=== PATIENT | female | born 1940 | race Caucasian/White ===

== ENCOUNTER 2023-03-02 16:45 | Inpatient (IN) | payer MEDICARE, BC, SELFPAY ==
[2023-03-02 16:56] VITALS: BP 125/81; PULSE 88; RESP 14; TEMP 36.9; O2SAT 94
--- NOTE | 2023-03-02 17:26 | CRLHL7_ITS ---
For Patients: As a result of the Century Cures Act, medical imaging exams and procedure reports are released immediately into your electronic medical record. You may view this report before your referring provider. If you have questions, please contact your health care provider. INDICATION: Left hip pain. TECHNIQUE: CT pelvis without contrast. COMPARISON: Nine. FINDINGS: Bones: Acute mildly displaced left subcapital femoral fracture with impaction. Joints: Unremarkable. Soft tissues: Colonic diverticulosis. Mild colonic stool burden. Otherwise, unremarkable. IMPRESSION: Acute mildly displaced left subcapital femoral fracture with impaction. Please note that all CT scans at this facility use dose modulation, iterative reconstruction, and/or weight-based dosing when appropriate to reduce radiation dose to as low as reasonably achievable. Dictated by Richie De Jesus MD @ 03/02/2023 6:32:48 PM (Electronically Signed)
--- NOTE | 2023-03-02 17:31 | ED_ITS ---
HPI - General Adult General Time Seen by Provider: 17:31 Date Seen: 03/02/23 Chief complaint: Fall/Minor Trauma Stated complaint: Fall at [facility], Trouble standing and walking Time Seen by Provider: 03/02/23 17:02 Source: family Mode of arrival: wheelchair History of Present Illness HPI narrative: Brenda is a 82-year-old female past medical history includes Alzheimer's presents emergency department via private car with family after a fall. Patient resides at [facility], she had a witnessed fall when she was ambulating, she hit her leg on a table and fell forward on her left side hitting her left knee and left hip, by the time staff got to her she was already standing up. No head injury or LOC. patient is not currently on blood thinners. When family was over she was sitting on the bed and leaning forward she complained of some left hip pain. When she ambulates she kind of limps on that left leg. Patient had been doing well prior to the fall. No other concerns at this time. Related Data Home Medications Medication Instructions Recorded Confirmed acetaminophen 500 mg capsule 500 mg PO BID 03/02/23 03/02/23 donepezil 5 mg tablet 5 mg PO DAILY 03/02/23 03/02/23 emollient (Vanicream topical) 1 applic topical DAILY 03/02/23 03/02/23 magic cup 1 cp PO BID 03/02/23 03/02/23 sertraline 50 mg tablet 50 mg PO DAILY 03/02/23 03/02/23 trazodone 50 mg tablet 25 mg PO BID PRN 03/02/23 03/02/23 Allergies Allergy/AdvReac Type Severity Reaction Status Date / Time No Known Drug Allergies Allergy Verified 03/02/23 17:07 Review of Systems Status of ROS: Reports: other (Unable to obtain due to dementia) PFSH PFSH Social History Smoking Status: Never smoker Do you use any of these nicotine containing products: None Second hand tobacco smoke exposure: No How often do you have a drink containing alcohol: never How often do you have six or more drinks on one occasion: Never AUDIT-C Alcohol total score: 0 Non-prescribed substance use: denies use service: No Exam Narrative: Exam Narrative: General: She has no obvious distress sitting comfortably, nontoxic in appearance, HEENT: Her head is atraumatic, pupils equal round reactive to light, extraocular muscles intact Neck: Nontender cervical spine Muscle skeletal: Back is atraumatic, nontender the thoracic to lumbar spine No pain with internal external rotation of the right hip, mild pain with internal external rotation of the left hip, no shortening, no external rotation, CMS intact Small abrasion to the left patella, normal range of motion left knee, nontender to palpation Neuro: Dementia, chronic, baseline per family Heart: Normal sinus rhythm Lungs: No increased work of breathing, CTA BL Const: Vital Signs, click to edit/add: Vital Signs - 24 hr 03/02/23 16:56 Temperature 98.4 F Pulse Rate [Pulse Oximeter] 88 Respiratory Rate 14 Blood Pressure [Ri ght Upper Arm] 125/81 Pulse Oximetry 94 Oxygen Delivery Me thod Room Air Course Course Hospital Course: Workup will include CT pelvis without IV contrast, no labs to be obtained at this time, patient's pain has been controlled, family was in agreement. Differential diagnosis include but not limited to fracture, sprain, contusion, dislocation, vascular damage nerve damage, ligament damage, tendon damage and other etiologies. Reevaluation(s) Reevaluation #1: CT pelvis without IV contrast: Showed a acute mildly displaced left subcapital femoral fracture with impaction. Will speak to Orthopedics on-call. Spoke with Nabil MCKEON from Orthopedics, recommended NPO after midnight and surgical intervention tomorrow at noon, this was discussed with family and there were in agreement. Spoke with Dr. Sanaz IVERSON, he accepts care of the patient to [facility]. Time: 18:50 Vital Signs Vital signs: Initial Vital Signs Temperature 98.4 F 03/02/23 16:56 Temperature Source Temporal Artery Scan 03/02/23 16:56 Pulse Rate 88 03/02/23 16:56 Respiratory Rate 14 03/02/23 16:56 Blood Pressure 125/81 03/02/23 16:56 Blood Pressure Mean 95 03/02/23 16:56 Blood Pressure Position Sitting 03/02/23 16:56 Pulse Oximetry 94 03/02/23 16:56 Oxygen Delivery Method Room Air 03/02/23 16:56 Vital Signs Temperature 98.4 F 03/02/23 16:56 Pulse Rate 88 03/02/23 16:56 Respiratory Rate 14 03/02/23 16:56 Blood Pressure 125/81 03/02/23 16:56 Pulse Oximetry 94 03/02/23 16:56 Oxygen Delivery Method Room Air 03/02/23 16:56 Temperature 98.4 F 03/02/23 16:56 Pulse Rate 88 03/02/23 16:56 Respiratory Rate 14 03/02/23 16:56 Blood Pressure 125/81 03/02/23 16:56 Pulse Oximetry 94 03/02/23 16:56 Oxygen Delivery Method Room Air 03/02/23 16:56 Discharge Plan Discharge Clinical Impression: Closed subcapital fracture of left femur Patient Disposition: Admitted As Inpatient
[2023-03-02 19:57] LABS: SARS Antigen* negative (Negative)
[2023-03-02] MEDS: TRAZODONE HCL 50 MG TABLET 25 MG PO (20:29)
[2023-03-02 21:09] LABS: Basophils Absolute Auto 0.03 K/uL (0.00-0.30); Basophils Percent Auto 0.3 % (0.0-3.0); Eosinophils Absolute Auto 0.04 K/uL (0.00-0.50); Eosinophils Percent Auto 0.4 % (0.0-7.0); Hematocrit 38.7 % (33.0-51.0); Hemoglobin* 12.3 gm/dL (12.0-16.0); Immature Granulocytes Abs Auto 0.01 K/uL (0.00-0.30); Immature Granulocytes Pct Auto 0.1 %; Lymphocytes Percent Auto 7.6 % (20-44); Mean Corpuscular HGB Conc 32 gm/dL (32-36); Mean Corpuscular Hemoglobin 28 pg (26-34); Mean Corpuscular Volume 88 fL (80-100); Monocytes Percent Auto 5.5 % (0.0-11.0); Neutrophils Percent Auto 86.1 % (42.0-72.0); Platelet Count* 192 K/uL (140-440); RDW Coefficient of Variation % 15.7 % (11.5-15.5); Red Blood Count 4.38 m/uL (4.00-5.20); White Blood Count* 9.35 K/uL (4.50-11.00)
[2023-03-02 21:23] LABS: Chloride* 103 mmol/L (96-114); Slide Review Reflex No; Sodium* 134 mmol/L (135-149)
[2023-03-02 21:24] LABS: Potassium* 4.1 mmol/L (3.6-5.1)
[2023-03-02 21:26] LABS: Creatinine* 0.5 mg/dL (0.5-1.5); Estimated Glomerular Filt Rate 95 ml/min
[2023-03-02 21:27] LABS: Blood Urea Nitrogen* 16 mg/dL (7-30); Calcium* 8.7 mg/dL (8.4-10.6); Carbon Dioxide* 23 mmol/L (20-32); Glucose* 151 mg/dL (60-115)
[2023-03-02 21:47] LABS: Troponin, Point-of-Care* 0.03 ng/ml (0.01-0.04)
[2023-03-02 21:59] VITALS: BP 130/89; PULSE 88; RESP 18; TEMP 36.4; O2SAT 97; BMI 17.8
[2023-03-02] MEDS: 5 % DEXTROSE IN LAC RINGER'S 1,000 ML 75 ML IV (22:39)
[2023-03-02 23:00] VITALS: BP 112/47; PULSE 88; PULSE 97; RESP 16; RESP 18; TEMP 36.4; O2SAT 95
--- NOTE | 2023-03-02 23:03 | PM.IMHP1 ---
Hospitalist- H&P: HPI History of Present Illness Time Seen by Provider: 20:30 Date Seen: 03/02/23 Chief complaint: Fall at [facility], Trouble standing and walking Narrative: Esteban Tesfaye is a 82 year old woman with advanced late onset Alzheimer's dementia, with severe and progressive cognitive impairment and physical debility. Longstanding history of multiple falls. Slow, evolving unintentional weight loss presumably due to inadequate oral intake. Lives at [address] [facility]. Patient had a witness fall today as she was ambulating. She struck her leg on a table, fell forward on her left side, hit her left knee in her left hip. By the time the staff reached her she was already standing up. Family was visiting her later in the day and notice the patient complaining of left hip pain. She is now ambulating with a limp on the left leg. Did not have a limp prior to her fall. Patient did not strike her head at all. Denies pain elsewhere. Upper extremities without discomfort. No loss of consciousness from this fall. Review of Systems Status of ROS: Reports: 10 or more systems reviewed and unremarkable except as noted in History and below Narrative: Denies chest heaviness, pressure, tightness, or pain. Denies cough, dyspnea at rest, paroxysmal nocturnal dyspnea, orthopnea. Denies syncope or near-syncope. Denies palpitations or chest fluttering. Denies dependent edema. No fever, rigors, or diaphoresis. Denies nausea vomiting. No constipation or diarrhea. No dysuria, urgency, frequency, hematuria. No focal motor neurologic deficits. According to her daughter Krys and her son Richard their mom's mood has been relatively well controlled on her current medication regimen. Their mother is agreeable most of the time, although other times she makes it known that she wants to try to continue to be as independent as possible with minimal support even when it might be dangerous for her to do something without support. No other recent falls. No other trauma or injury. No recent travel. No blood loss of any sort. Her daughter Krys and her son Richard speak on behalf of their mother. Thor cell phone is [phone]. Richard cell phone is [phone]. Patient has a DNR DNI resuscitation status. Her who has advanced dementia lives in the same [facility]. PFSH PFSH Medical History (Updated 03/02/23 @ 23:17 by Carlton Yo MD) Alzheimer's type dementia with late onset without behavioral disturbance ?G30.1 - Alzheimer's disease with late onset (ICD-10) ?F02.80 - Dementia in other diseases classified elsewhere, unspecified severity, without behavioral disturbance, psychotic disturbance, mood disturbance, and anxiety (ICD-10) Elevated BP without diagnosis of hypertension ?R03.0 - Elevated blood-pressure reading, without diagnosis of hypertension (ICD-10) Falls frequently ?R29.6 - Repeated falls (ICD-10) Physical debility ?R53.81 - Other malaise (ICD-10) Unstable gait ?R26.81 - Unsteadiness on feet (ICD-10) Weight loss, unintentional ?R63.4 - Abnormal weight loss (ICD-10) Social History Smoking Status: Never smoker Do you use any of these nicotine containing products: None Second hand tobacco smoke exposure: No How often do you have a drink containing alcohol: never How often do you have six or more drinks on one occasion: Never AUDIT-C Alcohol total score: 0 Non-prescribed substance use: denies use Caffeine: Yes (COFFEE) service: No Meds Home Medications and Allergies Home Medications Medication Instructions Recorded Confirmed Type acetaminophen 500 mg capsule 500 mg PO BID 03/02/23 03/02/23 History donepezil 5 mg tablet 5 mg PO DAILY 03/02/23 03/02/23 History emollient (Vanicream topical) 1 applic topical DAILY 03/02/23 03/02/23 History magic cup 1 cp PO BID 03/02/23 03/02/23 History sertraline 50 mg tablet 50 mg PO DAILY 03/02/23 03/02/23 History trazodone 50 mg tablet 25 mg PO BID PRN 03/02/23 03/02/23 History Allergies Allergy/AdvReac Type Severity Reaction Status Date / Time No Known Drug Allergies Allergy Verified 03/02/23 17:07 Exam Narrative: Exam Narrative: Patient appears to be in no acute distress. Appears comfortable. Alert and oriented to self only. Does not know the name of her own children although it seems like she recognizes them. Not oriented to place, time, or situation. I reminder at least 3 x 1 with her that she fractured her leg and she is going to be admitted to the hospital so we can try to help her with that. She acknowledges it for brief period of time and then ask the same question again. According to her daughter and son this type of behavior is not unusual at, it is very usual for her. Vision and hearing are preserved grossly. Tympanic membranes are normal. Midline nasal septum. Buccal mucosa is moist. Neck is supple. Midline trachea. No adenopathy. Cachectic features in neck chest and extremities, including atrophy of peripheral muscles. Lungs are clear to auscultation. Heart tones with regular rhythm. Abdomen is thin with active bowel sounds, soft, nontender. No shortening or rotation of left leg. Minimal discomfort with internal rotation of the left hip, none on the right hip. Const: Vital Signs, click to edit/add: Vital Signs - 24 hr 03/02/23 16:56 03/02/23 21:59 Temperature 98.4 F 97.5 F L Pulse Rate [Left P ulse Oximeter] 88 Pulse Rate [Pulse Oximeter] 88 Respiratory Rate 14 18 Blood Pressure [Le ft Arm] 130/89 Blood Pressure [Ri ght Upper Arm] 125/81 Pulse Oximetry 94 97 Oxygen Delivery Me thod Room Air Room Air Documenting provider has reviewed patient's vital signs: yes Hospitalist - H&P: Result Labs Labs: Short CBC 03/02/23 Range/Units 21:00 WBC 9.35 (4.50-11.00) K/uL Hgb 12.3 (12.0-16.0) gm/dL Hct 38.7 (33.0-51.0) % Plt Count 192 (140-440) K/uL BMP 03/02/23 21:00 Sodium 134 L Potassium 4.1 Chloride 103 Carbon Dioxide 23 BUN 16 Creatinine 0.5 Glucose 151 H Calcium 8.7 ECG Attestation: I personally reviewed and interpreted this ECG as follows: ECG interpretation date: 03/02/23 Prior ECG tracings: not available for review Interpretation: Normal sinus rhythm. Incomplete right bundle branch block. Nonspecific T-wave abnormalities. No obvious ischemia or infarct. Imaging CT scan - pelvis: Attestation: I have reviewed the pertinent imaging results. Radiologist's impression: Acute mildly displaced left subcapital femoral fracture with impaction. Assessment and Plan Assessment and plan (1) Closed subcapital fracture of left femur: Status: Acute (2) Fall: Status: Acute (3) Unstable gait: Status: Acute (4) Alzheimer's type dementia with late onset without behavioral disturbance: Status: Acute (5) Falls frequently: Status: Acute (6) Physical debility: Status: Acute Plan 1. Reviewed impression with Dr. Looney, physician in the emergency department. 2. Reviewed my impression with the patient, her daughter Krys, and her son Richrad. 3. Admit to the hospital. Pain control. Orthopedic surgery consultation. I am told that our emergency department physician has already spoken with the service of Dr. Thurman, who will be seeing the patient tomorrow morning and discussing the possibility bring the patient to OR for fracture repair. 4. NPO after midnight. IV fluids. Attempt Currie catheter placement, although I am concerned about her behaviors possibly not allowing us to utilize a Currie catheter. May need to place a Currie catheter in at time of surgery. 5. Continue the supportive medications. 6. Physical therapy, occupational therapy, social sciences lecturer consultation. 7. Patient family agreeable to above stated plans and recommendations.
[2023-03-03] VITALS (28 sets, daily range): BP systolic 95–128; BP diastolic 49–78; PULSE 59–98; RESP 12–20; TEMP 35.9–37.6; O2SAT 89–100; BMI 17.7
[2023-03-03 00:36] LABS: Appearance Urine Clear (Clear); Bilirubin Urine Negative (Negative); Blood Urine Negative (Negative); Color Urine Yellow (Yellow); Glucose Urine Negative (Negative); Ketones Urine 1+ (Negative); Leukocyte Esterase Urine Negative (Negative); Nitrite Urine Negative (Negative); Protein Urine Negative (Negative); Specific Gravity Urine 1.015 (1.000-1.030); Urobilinogen Urine 0.2 (0.2-1.0)
--- NOTE | 2023-03-03 04:51 | PC.NURSE ---
ADMISSION NOTE: Pt to room 245 at 2201 with left hip fx. Pt transferred from cart to bed with a 3 assist, tolerated well, pt did not appear in pain. Pt disoriented, unable to given name or , pt unaware of time, place or situation. Placed Currie cath, 550ml out upon insertion, urine sample sent to lab. Pt denies pain and looks comfortable at rest. Pt turning and repositioning self independently in bed, fall precautions in place. VSS on RA. Pt NPO at midnight for potential sx in AM.
[2023-03-03] MEDS: HYDROmorphone 0.5 mg/0.5 ml inj 0.2 MG IVP (05:47)
--- NOTE | 2023-03-03 06:46 | PC.NURSE ---
Pt alert and oriented to self. Afebrile. Pt denies pain, chest pain, SOB, and N/V. Pt shifts self?independently in bed.?Pt slept throughout most of night. VSS. Currie is patent and draining, pt is tolerating a NPO diet for surgery 03/03/23. ?
[2023-03-03 06:58] LABS: HCO3 VBG 26 mmol/L (21-28); Lactate* 1.6 mmol/L (0.5-1.9); PCO2 VBG 33 mmHG (40-50); PO2 VBG 67.4 mmHG (25-47); pH VBG 7.515 (7.32-7.43)
[2023-03-03 07:27] LABS: Chloride* 108 mmol/L (96-114); Potassium* 4.6 mmol/L (3.6-5.1); Sodium* 134 mmol/L (135-149)
[2023-03-03 07:29] LABS: Creatinine* 0.4 mg/dL (0.5-1.5); Est. Creatinine Clearance* 31.21; Estimated Glomerular Filt Rate 100 ml/min
[2023-03-03 07:30] LABS: Blood Urea Nitrogen* 14 mg/dL (7-30); Carbon Dioxide* 23 mmol/L (20-32)
[2023-03-03 07:31] LABS: Calcium* 8.2 mg/dL (8.4-10.6); Glucose* 132 mg/dL (60-115); Magnesium* 2.2 mg/dL (1.5-2.6); Phosphorus* 2.7 mg/dL (2.5-4.5)
[2023-03-03 07:33] LABS: C Reactive Protein* 3.3 mg/dL (0.5-1.0)
[2023-03-03 07:57] LABS: Hematocrit 33.4 % (33.0-51.0); Hemoglobin* 10.9 gm/dL (12.0-16.0); Mean Corpuscular HGB Conc 33 gm/dL (32-36); Mean Corpuscular Hemoglobin 29 pg (26-34); Mean Corpuscular Volume 87 fL (80-100); Platelet Count* 180 K/uL (140-440); Red Blood Count 3.83 m/uL (4.00-5.20); White Blood Count* 7.04 K/uL (4.50-11.00)
[2023-03-03 08:01] LABS: Slide Review Reflex No
[2023-03-03] MEDS: DONEPEZIL 5 MG TABLET PO (08:43)
[2023-03-03] MEDS: SERTRALINE 50 MG TABLET PO (08:43)
--- NOTE | 2023-03-03 10:06 | W.ANESCHARGE ---
Anesthesia Charges Start Date/Time Anesthesia Start Date: 03/03/23 Anesthesia Start Time: 12:03 Stop Date/Time Anesthesia Stop Date: 03/03/23 Anesthesia Stop Time: 13:42 Summary Emergency: MDA Extremes of Age - Over 70 or under 1: MDA
--- NOTE | 2023-03-03 10:12 | P.IMPN_ITS ---
Progress Note: A&P Assessment and plan (1) Closed subcapital fracture of left femur: Problem details: - surgery 03/[address] Thurman Status: Acute (2) Fall: Problem details: - therapies will follow-up postoperatively Status: Acute (3) Unstable gait: Status: Acute (4) Alzheimer's type dementia with late onset without behavioral disturbance: Problem details: - stable at this time, no agitation Status: Acute Plan - surgery today, therapies postoperatively to help assist with disposition planning Subjective Date Seen: 03/03/23 Interval history: No acute events overnight. Patient is having surgery today with Dr. Thurman. She has no concerns for the hospitalist team this morning. Exam Narrative: Exam Narrative: GEN: Esteban is laying comfortably in bed, nontoxic in appearance, cognitive impairment evident but she is answering questions appropriately HEENT: EOMIs bilaterally, no scleral icterus CV: RRR, No concerning murmurs R: LCTA bilaterally without concerning wheezing Skin: No concerning skin lesions or rashes on exposed skin Neuro: No focal deficits on limited neurologic exam Const: Vital Signs, click to edit/add: Vital Signs - 24 hr 03/02/23 16:56 03/02/23 21:59 03/02/23 23:00 Temperature 98.4 F 97.5 F L Pulse Rate [Left A pical] Pulse Rate [Left P ulse Oximeter] 88 88 Pulse Rate [Pulse Oximeter] 88 Respiratory Rate 14 18 18 Blood Pressure [Le ft Arm] 130/89 Blood Pressure [Ri ght Upper Arm] 125/81 Pulse Oximetry 94 97 Oxygen Delivery Me thod Room Air Room Air 03/02/23 23:00 03/02/23 23:00 03/03/23 02:30 Temperature 97.6 F 97.8 F Pulse Rate [Left A pical] Pulse Rate [Left P ulse Oximeter] 97 91 Pulse Rate [Pulse Oximeter] Respiratory Rate 16 16 18 Blood Pressure [Le ft Arm] 112/47 L 101/52 L Blood Pressure [Ri ght Upper Arm] Pulse Oximetry 95 95 96 Oxygen Delivery Me thod Room Air Room Air Room Air 03/03/23 07:35 03/03/23 07:35 Temperature 97.5 F L Pulse Rate [Left A pical] 76 Pulse Rate [Left P ulse Oximeter] 76 Pulse Rate [Pulse Oximeter] Respiratory Rate 18 18 Blood Pressure [Le ft Arm] 119/56 L Blood Pressure [Ri ght Upper Arm] Pulse Oximetry 95 95 Oxygen Delivery Me thod Room Air Room Air Labs Labs: Laboratory Results - last 24 hr 03/02/23 03/02/23 03/02/23 19:34 21:00 23:05 WBC 9.35 RBC 4.38 Hgb 12.3 Hct 38.7 MCV 88 MCH 28 MCHC 32 RDW Coeff of [place] 15.7 H Plt Count 192 Neut % (Auto) 86.1 H Lymph % (Auto) 7.6 L [place] % (Auto) 5.5 Eos % (Auto) 0.4 Baso % (Auto) 0.3 Neut # (Auto) 8.10 H Lymph # (Auto) 0.70 L [place] # (Auto) 0.50 Eos # (Auto) 0.04 Baso # (Auto) 0.03 VBG pH VBG pCO2 VBG pO2 VBG HCO3 Sodium 134 L Potassium 4.1 Chloride 103 Carbon Dioxide 23 BUN 16 Creatinine 0.5 Estimated Creat Clear Estimated GFR 95 Glucose 151 H Lactate Calcium 8.7 Phosphorus Magnesium C-Reactive Protein TSH Urine Color Yellow Urine Appearance Clear Urine pH 7.0 Ur Specific [place] 1.015 Urine Protein Negative Urine Glucose (UA) Negative Urine Ketones 1+ A Urine Blood Negative Urine Nitrite Negative Urine Bilirubin Negative Urine Urobilinogen 0.2 Ur Leukocyte Esterase Negative SARS-CoV-2 Ag (Rapid) negative POC Troponin I 0.03 03/03/23 05:47 WBC 7.04 RBC 3.83 L Hgb 10.9 L Hct 33.4 MCV 87 MCH 29 MCHC 33 RDW Coeff of [place] Plt Count 180 Neut % (Auto) Lymph % (Auto) [place] % (Auto) Eos % (Auto) Baso % (Auto) Neut # (Auto) Lymph # (Auto) [place] # (Auto) Eos # (Auto) Baso # (Auto) VBG pH 7.515 H VBG pCO2 33 L VBG pO2 67.4 H VBG HCO3 26 Sodium 134 L Potassium 4.6 Chloride 108 Carbon Dioxide 23 BUN 14 Creatinine 0.4 L Estimated Creat Clear 31.21 Estimated GFR 100 Glucose 132 H Lactate 1.6 Calcium 8.2 L Phosphorus 2.7 Magnesium 2.2 C-Reactive Protein 3.3 H TSH 1.670 Urine Color Urine Appearance Urine pH Ur Specific [place] Urine Protein Urine Glucose (UA) Urine Ketones Urine Blood Urine Nitrite Urine Bilirubin Urine Urobilinogen Ur Leukocyte Esterase SARS-CoV-2 Ag (Rapid) POC Troponin I
--- NOTE | 2023-03-03 11:11 | SUR.PREOP ---
TIME?OUT:?1111 PT/RN/MDA?VERIFICATION?OF?SURGICAL?SITE,?PROCEDURE,?AND?CONSENT OBTAINED?PRIOR?TO?INVASIVE?PROCEDURE.
[2023-03-03] MEDS: LACTATED RINGERS 1000 ML 1,000 ML 125 ML IV (12:03)
[2023-03-03] MEDS: CEFAZOLIN 1 GM in 0.9 % SODIUM CHLORIDE Mini-bag 100 ML IVPB ×2 (12:31→20:52)
--- NOTE | 2023-03-03 12:48 | PC.NURSE ---
Pt eval by Dr. Manuel Thurman this am, left hip marked by surgeon for procedure later today. Pt's dtr Krys who is POA provided verbal consent via telephone witnessed by surgeon and primary RN. Pt received po meds with sip of water. Preop check list and SBAR completed per protocol. Son Richard and Shaniqua present at bedside when pt taken to OR in her hospital bed at 1049am.
--- NOTE | 2023-03-03 13:32 | PC.SOCIAL ---
Discharge planning- Phone call to pt's son, Richard Farfan (primary contact), to discuss discharge plans. The family would like pt to go to [facility] for short-term rehab, since pt currently lives on [facility]. This worker informs that social work will follow up with family next Monday to discuss plans further. Phone call to Tresa Guerrier in admissions at [facility] at [phone]. Verified that pt currently lives in the [facility]. Provided information that pt is having surgery today and will need short-term rehab for recovery. Tresa requests that the cover sheet, H&P, Progress notes, and med list be faxed to her for review. Tresa informs that [facility] can accept pt for admission when pt is medically ready for discharge. Tresa requests that therapy notes be sent next Monday and an update. Faxed referral to [facility] at [phone]. Social work will follow up as necessary.
--- NOTE | 2023-03-03 13:47 | P.ORPRC_ITS ---
Procedure Note Date of procedure: 03/03/23 Procedure: PREOPERATIVE DIAGNOSIS: 1. Left femoral neck fracture, displaced, acute, closed POSTOPERATIVE DIAGNOSIS: 1. Left femoral neck fracture, displaced, acute, closed PROCEDURE: 1. Left hip bipolar hemiarthroplasty for femoral neck fracture SURGEON: Manuel Thurman MD. FAMILY MEDICINE PHYSICIAN ASSISTANT: Cresencio SON - Of note, an assistant curator was critical for this case to aid in patient positioning, tissue retraction, limb manipulation/positioning, hip reduction and dislocation, clearing of cement, and closure. ANESTHESIA: Spinal anesthetic EBL: 50 mL. IMPLANTS: DePuy cemented [place] stem (size 4 with 127 degree neck); (+1.5) 28mm inner head diameter and 46 mm outer head diameter; 9.5 centralizer] COMPLICATIONS: None evident INDICATIONS: The patient is a pleasant 82-year-old female who has experienced severe left hip pain after a fall on 03/02/2023. She sustained a fall from a standing height. She resides at [facility]. She has a history of dementia. After the fall, she was unable to bear weight. Presented to [facility]. X-rays revealed a left femoral neck fracture that was displaced. After medical evaluation found the patient to be in optimal condition, surgery was recommended for stabilization of the hip. DESCRIPTION OF PROCEDURE: Following a thorough discussion of risks, benefits, and alternatives consent was obtained and the left hip was marked. The patient was brought to the operating room and placed supine on the operating table. Induction of anesthesia was undertaken. They were then positioned lateral decubitus with the operative side up. 1 g IV Ancef and 1 g tranexamic acid was administered within 1 hr of incision preoperatively. Proper time-out was performed identifying proper patient, site, and procedure. The operative extremity was prepped and draped in the appropriate sterile fashion using ChloraPrep with head in neutral alignment in all bony prominences well padded and an axillary roll placed. A curvilinear longitudinal incision was made in line with the posterior 1/3rd of the greater trochanter, fairly equally divided proximal and distal to the greater trochanter tip. Sharp incision through skin and Bovie cautery through subcutaneous tissue allowed hemostasis to be achieved. The ITB band was identified, divided in line with its fibers as was the gluteal fascia. The deeper muscle fibers were bluntly divided. The greater trochanteric bursa was excised, and the short external rotators were then released from their insertion including the piriformis. These were tagged for later repair. Additionally the capsule was released in an inverted T-fashion. The fracture hematoma was immediately encountered and evacuated. Capsule was released down to the lesser trochanter. The femoral head was removed, and sized out to be approximately a 46 mm outer head. At this stage, the femoral neck was freshened with a sagittal saw with caution taken to avoid injury to the greater trochanter. The femur was prepared initially with a box osteotome and hand reamers followed by surgical broaches up to the size noted above. Various head sizes were then trialed and found to have an excellent fit/stability with the implants noted above. At this stage, thorough irrigation normal saline was performed, and cement was mixed on back table. The cement restrictor was placed deep after thorough irrigation and preparation of the femoral canal, followed by cementing, pr essurizing, and stem insertion while holding it in valgus to avoid a varus position. Trial heads were again inserted and found to have excellent stability and length when compared to the contralateral lower extremities. Thus, the real heads were open, and inserted. Thorough irrigation with normal saline was then performed followed by closure of the capsule followed by the short external rotators through drill holes in the greater trochanter with #1 PDS. Thorough irrigation was again performed, and closure of the ITB band was completed with #1 Stratafix. Subcutaneous and subcuticular closure was closed with 2-O Vicryl and 4 -0 Monocryl, respectively. Dressings were applied, and the patient was awoken from anesthesia and transferred the PACU in stable condition. PLAN: 1. Weight bear as tolerated on the operative extremity - posterior hip precautions. 2. 23 hr perioperative antibiotics. 3. Ice. 4. PT/OT consults for ambulation assistance/mobility education - posterior hip precautions. 5. Social work consult for discharge planning. 6. Analgesics PRN 7. DVT prophylaxis with at [facility], Leonel Cornejo, and Axelrelnyla.
--- NOTE | 2023-03-03 13:53 | P.ORCN_ITS ---
History of Present Illness HPI Date Seen: 03/03/23 Chief complaint: Fall at [facility], Trouble standing and walking Narrative: Esteban is an 82 year old woman with advanced late onset Alzheimer's dementia, with severe and progressive cognitive impairment and physical debility.? She also ex periences multiple falls over a prolonged history.? Slow, evolving unintentional weight loss presumably due to inadequate oral intake.? Resides [facility] he She had a witness fall on 03/02/2023 as she was ambulating.? She struck her leg on a table, fell forward on her left side, hit her left knee in her left hip.? By the time the staff reached her she was already standing up.? Family was visiting her later in the day and notice the patient complaining of left hip pain.? She is now ambulating with a limp on the left leg.? Did not have a limp prior to her fall. No reported head trauma.? No loss of consciousness from this fall reported. History is augmented by the patient's daughter who I have spoken with on the phone, Krys. Review of Systems Narrative: No fevers or chills. Dementia is noteworthy. No history of blood clotting or bleeding disorders reported. [facility] Medical History Alzheimer's type dementia with late onset without behavioral disturbance ?G30.1 - Alzheimer's disease with late onset (ICD-10) ?F02.80 - Dementia in other diseases classified elsewhere, unspecified severity, without behavioral disturbance, psychotic disturbance, mood disturbance, and anxiety (ICD-10) Elevated BP without diagnosis of hypertension ?R03.0 - Elevated blood-pressure reading, without diagnosis of hypertension (ICD-10) Falls frequently ?R29.6 - Repeated falls (ICD-10) Physical debility ?R53.81 - Other malaise (ICD-10) Unstable gait ?R26.81 - Unsteadiness on feet (ICD-10) Weight loss, unintentional ?R63.4 - Abnormal weight loss (ICD-10) Social History Smoking Status: Never smoker Do you use any of these nicotine containing products: None Second hand tobacco smoke exposure: No How often do you have a drink containing alcohol: never How often do you have six or more drinks on one occasion: Never AUDIT-C Alcohol total score: 0 Non-prescribed substance use: denies use Caffeine: Yes (COFFEE) service: No Meds Home Medications and Allergies Home Medications Medication Instructions Recorded Confirmed Type acetaminophen 500 mg capsule 500 mg PO BID 03/02/23 03/02/23 History donepezil 5 mg tablet 5 mg PO HS 03/02/23 03/03/23 History emollient (Vanicream topical) 1 applic topical DAILY 03/02/23 03/02/23 History sertraline 50 mg tablet 50 mg PO DAILY 03/02/23 03/02/23 History trazodone 50 mg tablet 25 mg PO BID PRN 03/02/23 03/02/23 History Allergies Allergy/AdvReac Type Severity Reaction Status Date / Time No Known Drug Allergies Allergy Verified 03/02/23 17:07 Ortho Exam Narrative Exam Narrative: Patient is alert and lying in the bed upon my interview/time of seen her this morning. She is appropriately cooperative. Confused as to location and time. Exam left hip shows no erythema, and induration, or other cutaneous changes. She winces with hip rotation and knee range of motion. Foot and ankle range of motion is appropriate without pain or dysfunction. Neurologically appears to be intact to sensory light touch/pain in all 5 myotomes left lower extremity. Palpable DP and PT pulse. Strength and stability testing on the hip as well as gait and station are deferred today due to the left femoral neck fracture. Const Vital Signs, click to edit/add: Vital Signs - 24 hr 03/02/23 16:56 03/02/23 21:59 03/02/23 23:00 Temperature 98.4 F 97.5 F L Pulse Rate Pulse Rate [Left Apical] Pulse Rate [Left Pulse Oximeter] 88 88 Pulse Rate [Pulse Oximeter] 88 Respiratory Rate 14 18 18 Blood Pressure Blood Pressure [Left Arm] 130/89 Blood Pressure [Right Upper Arm] 125/81 Pulse Oximetry 94 97 Oxygen Delivery Method Room Air Room Air Oxygen Flow Rate 03/02/23 23:00 03/02/23 23:00 03/03/23 02:30 Temperature 97.6 F 97.8 F Pulse Rate Pulse Rate [Left Apical] Pulse Rate [Left Pulse Oximeter] 97 91 Pulse Rate [Pulse Oximeter] Respiratory Rate 16 16 18 Blood Pressure Blood Pressure [Left Arm] 112/47 L 101/52 L Blood Pressure [Right Upper Arm] Pulse Oximetry 95 95 96 Oxygen Delivery Method Room Air Room Air Room Air Oxygen Flow Rate 03/03/23 07:35 03/03/23 07:35 03/03/23 10:49 Temperature 97.5 F L Pulse Rate Pulse Rate [Left Apical] 76 Pulse Rate [Left Pulse Oximeter] 76 Pulse Rate [Pulse Oximeter] Respiratory Rate 18 18 18 Blood Pressure Blood Pressure [Left Arm] 119/56 L Blood Pressure [Right Upper Arm] Pulse Oximetry 95 95 Oxygen Delivery Method Room Air Room Air Oxygen Flow Rate 03/03/23 11:08 03/03/23 11:10 03/03/23 11:15 Temperature Pulse Rate Pulse Rate [Left Apical] Pulse Rate [Left Pulse Oximeter] 76 72 75 Pulse Rate [Pulse Oximeter] Respiratory Rate 16 16 18 Blood Pressure Blood Pressure [Left Arm] 122/49 L 126/61 115/55 L Blood Pressure [Right Upper Arm] Pulse Oximetry 97 100 100 Oxygen Delivery Method Nasal Cannula Nasal Cannula Nasal Cannula Oxygen Flow Rate 3 3 3 03/03/23 11:20 03/03/23 11:26 03/03/23 13:40 Temperature 98.2 F Pulse Rate 66 Pulse Rate [Left Apical] Pulse Rate [Left Pulse Oximeter] 68 66 Pulse Rate [Pulse Oximeter] Respiratory Rate 18 18 15 Blood Pressure 107/69 Blood Pressure [Left Arm] 106/49 L 102/53 L Blood Pressure [Right Upper Arm] Pulse Oximetry 100 100 99 Oxygen Delivery Method Nasal Cannula Nasal Cannula Room Air Oxygen Flow Rate 3 3 03/03/23 13:45 Temperature Pulse Rate 69 Pulse Rate [Left Apical] Pulse Rate [Left Pulse Oximeter] Pulse Rate [Pulse Oximeter] Respiratory Rate 112 H Blood Pressure 122/71 Blood Pressure [Left Arm] Blood Pressure [Right Upper Arm] Pulse Oximetry 99 Oxygen Delivery Method Room Air Oxygen Flow Rate Results Labs Labs: Laboratory Results - last 48 hr 03/02/23 03/02/23 03/02/23 19:34 21:00 23:05 WBC 9.35 RBC 4.38 Hgb 12.3 Hct 38.7 MCV 88 MCH 28 MCHC 32 RDW Coeff of [place] 15.7 H Plt Count 192 Neut % (Auto) 86.1 H Lymph % (Auto) 7.6 L [place] % (Auto) 5.5 Eos % (Auto) 0.4 Baso % (Auto) 0.3 Neut # (Auto) 8.10 H Lymph # (Auto) 0.70 L [place] # (Auto) 0.50 Eos # (Auto) 0.04 Baso # (Auto) 0.03 VBG pH VBG pCO2 VBG pO2 VBG HCO3 Sodium 134 L Potassium 4.1 Chloride 103 Carbon Dioxide 23 BUN 16 Creatinine 0.5 Estimated Creat Clear Estimated GFR 95 Glucose 151 H Lactate Calcium 8.7 Phosphorus Magnesium C-Reactive Protein TSH Urine Color Yellow Urine Appearance Clear Urine pH 7.0 Ur Specific [place] 1.015 Urine Protein Negative Urine Glucose (UA) Negative Urine Ketones 1+ A Urine Blood Negative Urine Nitrite Negative Urine Bilirubin Negative Urine Urobilinogen 0.2 Ur Leukocyte Esterase Negative SARS-CoV-2 Ag (Rapid) negative POC Troponin I 0.03 03/03/23 05:47 WBC 7.04 RBC 3.83 L Hgb 10.9 L Hct 33.4 MCV 87 MCH 29 MCHC 33 RDW Coeff of [place] Plt Count 180 Neut % (Auto) Lymph % (Auto) [place] % (Auto) Eos % (Auto) Baso % (Auto) Neut # (Auto) Lymph # (Auto) [place] # (Auto) Eos # (Auto) Baso # (Auto) VBG pH 7.515 H VBG pCO2 33 L VBG pO2 67.4 H VBG HCO3 26 Sodium 134 L Potassium 4.6 Chloride 108 Carbon Dioxide 23 BUN 14 Creatinine 0.4 L Estimated Creat Clear 31.21 Estimated GFR 100 Glucose 132 H Lactate 1.6 Calcium 8.2 L Phosphorus 2.7 Magnesium 2.2 C-Reactive Protein 3.3 H TSH 1.670 Urine Color Urine Appearance Urine pH Ur Specific [place] Urine Protein Urine Glucose (UA) Urine Ketones Urine Blood Urine Nitrite Urine Bilirubin Urine Urobilinogen Ur Leukocyte Esterase SARS-CoV-2 Ag (Rapid) POC Troponin I Diagnostic results Additional Comments: CT scan of the pelvis from [facility] ordered by different provider was reviewed by me and corroborated with the radiology report. Regarding her orthopedic specific interest, this does reveal a valgus impacted femoral neck fracture with fairly significant impaction. The hip joint space otherwise appears decently preserved. No other appreciable fracture extension or contralateral fractures evident. Assessment and Plan Assessment and plan (1) Closed subcapital fracture of left femur: Problem comment: - surgery 03/[address] Thurman Status: Acute Total time spent: Total time spent is greater than 50% in coordination of care (as documented) at patient's floor/unit and/or counseling patient: (2) Fall: Problem comment: - therapies will follow-up postoperatively Status: Acute Total time spent: Total time spent is greater than 50% in coordination of care (as documented) at patient's floor/unit and/or counseling patient: (3) Unstable gait: Status: Acute Total time spent: Total time spent is greater than 50% in coordination of care (as documented) at patient's floor/unit and/or counseling patient: (4) Alzheimer's type dementia with late onset without behavioral disturbance: Problem comment: - stable at this time, no agitation Status: Acute Total time spent: Total time spent is greater than 50% in coordination of care (as documented) at patient's floor/unit and/or counseling patient: Plan I had a good discussion today with the patient's daughter, Krys, on the phone. I communicated the findings of the imaging which reveals left subcapital femoral neck fracture. As the patient is struggle to ambulate in the current state, I do think surgery is indicated. While cannulated screws could be an option, I think to provide a more predictable relief of pain, I have suggested a left hip bipolar hemiarthroplasty. We discussed the risks, benefits, and alternatives to this or nonoperative intervention. I believe all questions were answered. Indeed will plan for surgery on 03/03/2023, the day I saw the patient. I have communicated with the hospitalist and coordinated care in that regard and have spoken with Anesthesia team as well. Following the surgery, I would anticipate she would be able to weight bear as tolerated on the left lower extremity. The goal would be to provide her a stable hip that allows her to ambulate as soon as possible. Following the surgery, I would anticipate 24 hours of perioperative antibiotics, Xarelto for DVT prophylaxis for another chemoprophylaxis option deemed more appropriate by the hospitalist team, as well as the need for physical and occupational therapy consultations. She also would benefit from a social work consult for discharge planning.
--- NOTE | 2023-03-03 13:55 | P.ANES_ITS ---
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
--- NOTE | 2023-03-03 13:55 | W.ANESCHARGE ---
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
--- NOTE | 2023-03-03 14:25 | SUR.PHASEI ---
150 CC GIVEN IN PACU PHASE 1
--- NOTE | 2023-03-03 15:20 | PC.NURSE ---
Pt arrived from PACU in hospital bed s/p Left hip surgery with Dr. Thurman to room 245 @ 1422. Initial assessment from PACU completed and Q 15 minute vs initiated. IV patent Left AC #20 gauge. GAGE Marcano updated on post op goals and frequent VS protocol. Ice pack to posterior left hip. Bilateral knee high teds and bilateral plexipulses. Currie to DD with clear light jasvir urine noted. Bed alarm engaged. Pt sleepy, pain 0 and declined offer of ice chips so far. Report provided to Cris ANGELA for evening shift.
[2023-03-03] MEDS: LACTATED RINGERS 1000 ML 1,000 ML 75 ML IV (17:58)
--- NOTE | 2023-03-03 18:54 | PC.NURSE ---
Shift [id number]- Patient is sleepy, but awakens with interactions. She denies pain. She tolerates jello and toast. Abductor pillow in place. She is more wakeful this evening, picking at lines. Currently with supper in front of her.
[2023-03-03] MEDS: SENNOSIDES 1 TAB TABLET 2 TAB PO (20:40)
[2023-03-03] MEDS: OXYCODONE 5 MG TABLET PO ×2 (20:40→23:49)
[2023-03-03] MEDS: 0.9 % SODIUM CHLORIDE 500 ML IV (23:47)
[2023-03-03] MEDS: TRAZODONE HCL 50 MG TABLET 25 MG PO (23:50)
[2023-03-04] VITALS (7 sets, daily range): BP systolic 113–136; BP diastolic 61–99; PULSE 70–92; RESP 16–18; TEMP 36.6–37.2; O2SAT 93–99
[2023-03-04] MEDS: CEFAZOLIN 1 GM in 0.9 % SODIUM CHLORIDE Mini-bag 100 ML IVPB ×2 (04:21→12:41)
--- NOTE | 2023-03-04 06:14 | PC.NURSE ---
Shift note: Pt has been up most of the shift, only went to sleep around 0430. Appeared very confuse. IV line was removed at 2300 by patient due to the confusion secondary to the baseline dementia and picking at things. New line inserted and Coban applied. Urine output was poor, 500ml N/S bolus given and urine output in total for the shift was about 800ml. Dressing appeared clean and dry. Pt is unable to complain and rate pain. PRN Oxycodone 5mg given 2x base on pulse rate, pt behavior and nurse discretion. Pt needs to be prompted consistently before eating and swallowing medications. Needs constant monitoring by nurses. Pt has been on bedrest throughout the shift. Vitally stable.
[2023-03-04 07:07] LABS: Basophils Absolute Auto 0.04 K/uL (0.00-0.30); Basophils Percent Auto 0.5 % (0.0-3.0); Eosinophils Absolute Auto 0.04 K/uL (0.00-0.50); Eosinophils Percent Auto 0.5 % (0.0-7.0); Hematocrit 34.4 % (33.0-51.0); Immature Granulocytes Abs Auto 0.01 K/uL (0.00-0.30); Immature Granulocytes Pct Auto 0.1 %; Lymphocytes Percent Auto 10.6 % (20-44); Mean Corpuscular HGB Conc 32 gm/dL (32-36); Mean Corpuscular Hemoglobin 29 pg (26-34); Mean Corpuscular Volume 89 fL (80-100); Monocytes Percent Auto 8.8 % (0.0-11.0); Neutrophils Percent Auto 79.5 % (42.0-72.0); Platelet Count* 192 K/uL (140-440); RDW Coefficient of Variation % 15.9 % (11.5-15.5); Red Blood Count 3.86 m/uL (4.00-5.20); White Blood Count* 8.75 K/uL (4.50-11.00)
[2023-03-04 07:09] LABS: Slide Review Reflex No
[2023-03-04 07:17] LABS: Chloride* 106 mmol/L (96-114); Potassium* 4.2 mmol/L (3.6-5.1); Sodium* 136 mmol/L (135-149)
[2023-03-04 07:20] LABS: Blood Urea Nitrogen* 14 mg/dL (7-30); Carbon Dioxide* 27 mmol/L (20-32); Creatinine* 0.5 mg/dL (0.5-1.5); Est. Creatinine Clearance* 31.21; Estimated Glomerular Filt Rate 95 ml/min; INR 1.02 (0.91-1.10)
[2023-03-04 07:21] LABS: Calcium* 8.5 mg/dL (8.4-10.6); Glucose* 102 mg/dL (60-115)
[2023-03-04] MEDS: SERTRALINE 50 MG TABLET PO (09:13)
[2023-03-04] MEDS: DONEPEZIL 5 MG TABLET PO (09:13)
[2023-03-04] MEDS: SENNOSIDES 1 TAB TABLET 2 TAB PO ×2 (09:13→21:11)
[2023-03-04] MEDS: RIVAROXABAN 10 MG TABLET PO (09:13)
[2023-03-04] MEDS: LACTATED RINGERS 1000 ML 1,000 ML 75 ML IV ×2 (09:13→20:57)
[2023-03-04] MEDS: EMOLLIENT BASE CREAM 1 APPLIC TOPICAL (09:13)
--- NOTE | 2023-03-04 09:36 | PM.IMPN1 ---
Progress Note: A&P Assessment and plan (1) Closed subcapital fracture of left femur: Problem details: - surgery 03/03/[address] Thurman Status: Acute (2) Fall: Problem details: - PT and OT Status: Acute (3) Unstable gait: Problem details: - PT and OT Status: Acute (4) Alzheimer's type dementia with late onset without behavioral disturbance: Problem details: - stable, no agitation Status: Chronic Time Spent With Patient Total time spent: Hgb stable postoperatively. Disposition: Will need short term rehab. SW involved to help with d/c planning. Subjective Time Seen by Provider: 08: Date Seen: 03/04/23 Interval history: Esteban is sitting up in bed eating vigorously. She denies pain. She does not stop eating during my exam despite me asking her to do so. Nurses report patient remains confused, likely baseline dementia. Exam Narrative: Exam Narrative: General: No acute distress. Awake, alert, oriented only to self. She is not at all oriented to situation and does not recall having surgery or that she had a broken hip. No pallor. No jaundice. Oropharynx: Clear. Mucous membranes moist. Cardiovascular: Regular rate and rhythm. No murmurs, gallops, or rubs. Respiratory: Clear to auscultation bilaterally. No wheezes or crackles. Extremities: Left posterior hip bandage is clean, dry, and intact. No pedal edema. Const: Vital Signs, click to edit/add: Vital Signs - 24 hr 03/03/23 10:49 03/03/23 11:08 03/03/23 11:10 Temperature Pulse Rate Pulse Rate [Left A pical] Pulse Rate [Left P ulse Oximeter] 76 72 Respiratory Rate 18 16 16 Blood Pressure Blood Pressure [Le ft Arm] 122/49 L 126/61 Pulse Oximetry 97 100 Oxygen Delivery Me thod Nasal Cannula Nasal Cannula Oxygen Flow Rate 3 3 03/03/23 11:15 03/03/23 11:20 03/03/23 11:26 Temperature Pulse Rate Pulse Rate [Left A pical] Pulse Rate [Left P ulse Oximeter] 75 68 66 Respiratory Rate 18 18 18 Blood Pressure Blood Pressure [Le ft Arm] 115/55 L 106/49 L 102/53 L Pulse Oximetry 100 100 100 Oxygen Delivery Me thod Nasal Cannula Nasal Cannula Nasal Cannula Oxygen Flow Rate 3 3 3 03/03/23 13:40 03/03/23 13:45 03/03/23 13:50 Temperature 98.2 F Pulse Rate 66 69 59 L Pulse Rate [Left A pical] Pulse Rate [Left P ulse Oximeter] Respiratory Rate 15 12 14 Blood Pressure 107/69 122/71 125/77 Blood Pressure [Le ft Arm] Pulse Oximetry 99 99 94 Oxygen Delivery Me thod Room Air Room Air Room Air Oxygen Flow Rate 03/03/23 13:55 03/03/23 14:00 03/03/23 13:57 Temperature 98.2 F Pulse Rate 59 L 61 Pulse Rate [Left A pical] Pulse Rate [Left P ulse Oximeter] Respiratory Rate 14 14 Blood Pressure 112/67 112/67 Blood Pressure [Le ft Arm] Pulse Oximetry 94 100 89 Oxygen Delivery Me thod Room Air Nasal Cannula Nasal Cannula Oxygen Flow Rate 3 3 03/03/23 14:05 03/03/23 14:10 03/03/23 14:22 Temperature 99.7 F H 96.6 F L Pulse Rate 68 68 63 Pulse Rate [Left A pical] Pulse Rate [Left P ulse Oximeter] Respiratory Rate 12 16 18 Blood Pressure 125/74 128/65 Blood Pressure [Le ft Arm] 125/64 Pulse Oximetry 99 94 Oxygen Delivery Me thod Room Air Room Air Nasal Cannula Oxygen Flow Rate 1 03/03/23 14:22 03/03/23 14:45 03/03/23 16:09 Temperature 96.6 F L Pulse Rate Pulse Rate [Left A pical] 63 65 Pulse Rate [Left P ulse Oximeter] 63 65 Respiratory Rate 18 18 Blood Pressure Blood Pressure [Le ft Arm] 116/72 109/63 Pulse Oximetry 97 97 92 Oxygen Delivery Me thod Room Air Nasal Cannula Room Air Oxygen Flow Rate 1 03/03/23 15:00 03/03/23 15:15 03/03/23 15:30 Temperature 97.5 F L Pulse Rate Pulse Rate [Left A pical] 73 73 62 Pulse Rate [Left P ulse Oximeter] Respiratory Rate 18 16 16 Blood Pressure Blood Pressure [Le ft Arm] 95/63 115/78 111/65 Pulse Oximetry 100 99 93 Oxygen Delivery Me thod Nasal Cannula Nasal Cannula Room Air Oxygen Flow Rate 0.5 0.5 03/03/23 16:00 03/03/23 16:30 03/03/23 17:00 Temperature Pulse Rate Pulse Rate [Left A pical] 65 64 68 Pulse Rate [Left P ulse Oximeter] Respiratory Rate 18 20 18 Blood Pressure Blood Pressure [Le ft Arm] 98/60 99/59 L 105/61 Pulse Oximetry 92 98 95 Oxygen Delivery Me thod Room Air Room Air Room Air Oxygen Flow Rate 03/03/23 18:00 03/03/23 19:00 03/03/23 23:00 Temperature 98.1 F Pulse Rate Pulse Rate [Left A pical] 98 Pulse Rate [Left P ulse Oximeter] Respiratory Rate 18 18 18 Blood Pressure Blood Pressure [Le ft Arm] 119/57 L 120/55 L Pulse Oximetry 95 98 Oxygen Delivery Me thod Room Air Room Air Oxygen Flow Rate 03/03/23 23:00 03/03/23 23:00 03/04/23 03:00 Temperature 97.7 F 98.4 F Pulse Rate Pulse Rate [Left A pical] 76 70 Pulse Rate [Left P ulse Oximeter] Respiratory Rate 18 18 18 Blood Pressure Blood Pressure [Le ft Arm] 121/64 113/63 Pulse Oximetry 100 100 93 Oxygen Delivery Me thod Room Air Room Air Room Air Oxygen Flow Rate 03/04/23 07:02 03/04/23 07:13 Temperature 98 F Pulse Rate Pulse Rate [Left A pical] 76 Pulse Rate [Left P ulse Oximeter] Respiratory Rate 18 Blood Pressure Blood Pressure [Le ft Arm] 119/67 Pulse Oximetry 94 97 Oxygen Delivery Me thod Room Air Room Air Oxygen Flow Rate Documenting provider has reviewed patient's vital signs: yes Labs Labs: Laboratory Results - last 24 hr 03/04/23 06:44 WBC 8.75 RBC 3.86 L Hgb 11.0 L Hct 34.4 MCV 89 MCH 29 MCHC 32 RDW Coeff of [place] 15.9 H Plt Count 192 Neut % (Auto) 79.5 H Lymph % (Auto) 10.6 L [place] % (Auto) 8.8 Eos % (Auto) 0.5 Baso % (Auto) 0.5 Neut # (Auto) 7.00 Lymph # (Auto) 0.90 [place] # (Auto) 0.80 Eos # (Auto) 0.04 Baso # (Auto) 0.04 INR 1.02 Sodium 136 Potassium 4.2 Chloride 106 Carbon Dioxide 27 BUN 14 Creatinine 0.5 Estimated Creat Clear 31.21 Estimated GFR 95 Glucose 102 Calcium 8.5
[2023-03-04] MEDS: OXYCODONE 5 MG TABLET PO ×2 (12:32→16:29)
--- NOTE | 2023-03-04 14:04 | P.ORPN_ITS ---
Subjective Subjective Date Seen: 03/04/23 Principal diagnosis: Status postop day 1 Left hip bipolar hemiarthroplasty Interval history: Patient is poor historian due to baseline dementia, but she reports doing okay. Minimal discomfort. Per staff, no acute events over night. Pain managed with scheduled/PRN medications and ice. Pain medications administered patient based on heart rate, patient agitation, etc; patient does not rate pain. Rivaroxaban DVT prophylaxis. Bilateral knee high Leonel stockings, and SCDs. Ortho Exam Narrative Exam Narrative: -Patient appears comfortable in bed; no apparent acute distress; resting comfortably, watching TV -Alert to self -Operative hip mildly swollen; soft tissues supple; no obvious erythema. Pain palpation over posterior hip -Abduction pillow in place -Surgical dressing clean, dry, intact; no obvious drainage, no erythematous streaking peripheral to the bandage -Bilateral calves soft and supple; overall muscle atrophy bilateral calves; no significant swelling, edema, tenderness, erythema, discoloration, warmth, or palpable cords -2+ DP/PT pulses, intact dermatomes and myotomes distally (5/5 strength) Const Vital Signs, click to edit/add: Vital Signs - 24 hr 03/03/23 14:05 03/03/23 14:10 03/03/23 14:22 Temperature 99.7 F H 96.6 F L Pulse Rate 68 68 63 Pulse Rate [Left Apical] Pulse Rate [Left Pulse Oximeter] Respiratory Rate 12 16 18 Blood Pressure 125/74 128/65 Blood Pressure [Left Arm] 125/64 Pulse Oximetry 99 94 Oxygen Delivery Method Room Air Room Air Nasal Cannula Oxygen Flow Rate 1 03/03/23 14:22 03/03/23 14:45 03/03/23 16:09 Temperature 96.6 F L Pulse Rate Pulse Rate [Left Apical] 63 65 Pulse Rate [Left Pulse Oximeter] 63 65 Respiratory Rate 18 18 Blood Pressure Blood Pressure [Left Arm] 116/72 109/63 Pulse Oximetry 97 97 92 Oxygen Delivery Method Room Air Nasal Cannula Room Air Oxygen Flow Rate 1 03/03/23 15:00 03/03/23 15:15 03/03/23 15:30 Temperature 97.5 F L Pulse Rate Pulse Rate [Left Apical] 73 73 62 Pulse Rate [Left Pulse Oximeter] Respiratory Rate 18 16 16 Blood Pressure Blood Pressure [Left Arm] 95/63 115/78 111/65 Pulse Oximetry 100 99 93 Oxygen Delivery Method Nasal Cannula Nasal Cannula Room Air Oxygen Flow Rate 0.5 0.5 03/03/23 16:00 03/03/23 16:30 03/03/23 17:00 Temperature Pulse Rate Pulse Rate [Left Apical] 65 64 68 Pulse Rate [Left Pulse Oximeter] Respiratory Rate 18 20 18 Blood Pressure Blood Pressure [Left Arm] 98/60 99/59 L 105/61 Pulse Oximetry 92 98 95 Oxygen Delivery Method Room Air Room Air Room Air Oxygen Flow Rate 03/03/23 18:00 03/03/23 19:00 03/03/23 23:00 Temperature 98.1 F Pulse Rate Pulse Rate [Left Apical] 98 Pulse Rate [Left Pulse Oximeter] Respiratory Rate 18 18 18 Blood Pressure Blood Pressure [Left Arm] 119/57 L 120/55 L Pulse Oximetry 95 98 Oxygen Delivery Method Room Air Room Air Oxygen Flow Rate 03/03/23 23:00 03/03/23 23:00 03/04/23 03:00 Temperature 97.7 F 98.4 F Pulse Rate Pulse Rate [Left Apical] 76 70 Pulse Rate [Left Pulse Oximeter] Respiratory Rate 18 18 18 Blood Pressure Blood Pressure [Left Arm] 121/64 113/63 Pulse Oximetry 100 100 93 Oxygen Delivery Method Room Air Room Air Room Air Oxygen Flow Rate 03/04/23 07:02 03/04/23 07:13 03/04/23 10:50 Temperature 98 F 99 F Pulse Rate Pulse Rate [Left Apical] 76 Pulse Rate [Left Pulse Oximeter] 78 Respiratory Rate 18 18 Blood Pressure Blood Pressure [Left Arm] 119/67 116/62 Pulse Oximetry 94 97 96 Oxygen Delivery Method Room Air Room Air Room Air Oxygen Flow Rate Assessment and Plan Assessment and plan (1) Closed subcapital fracture of left femur: Problem details: - surgery 03/03/[address] Thurman Status: Acute (2) Fall: Problem details: - PT and OT Status: Acute (3) Unstable gait: Problem details: - PT and OT Status: Acute (4) Alzheimer's type dementia with late onset without behavioral disturbance: Problem details: - stable, no agitation Status: Chronic Plan - Complete 23 hour perioperative antibiotics. - PT/OT consult for education and assistance. - Social work consult for discharge planning - plan to return to [facility] - Prescribed analgesics as needed - DVT prophylaxis: Rivaroxaban, bilateral knee high Leonel Hose stockings and SCDs - Anticipation is for discharge to [facility] if the patient remains medically stable, pain is controlled, and they are safe with mobilization.
[2023-03-04] MEDS: ACETAMINOPHEN 325 MG TABLET 650 MG PO (16:29)
--- NOTE | 2023-03-04 18:58 | PC.NURSE ---
Shift [id number]- Patient walks to bathroom with assist of 2, gait belt, walker. She does not void though. She is up to chair and needs frequent reminders to keep eating supper. She is very forgetful, needs a lot of cueing, is not always able to follow directions. Oxycodone and tylenol given for signs of pain. Ice pack also applied.
[2023-03-04] MEDS: LACTATED RINGERS 500 ML 500 ML IV (20:41)
[2023-03-04] MEDS: TRAZODONE HCL 50 MG TABLET 25 MG PO (22:23)
[2023-03-05] VITALS (9 sets, daily range): BP systolic 121–146; BP diastolic 60–78; PULSE 71–97; RESP 16–18; TEMP 36.4–37.2; O2SAT 90–99
[2023-03-05] MEDS: ACETAMINOPHEN 325 MG TABLET 650 MG PO (00:26)
[2023-03-05] MEDS: OXYCODONE 5 MG TABLET PO ×4 (00:26→20:43)
--- NOTE | 2023-03-05 06:09 | PC.NURSE ---
End of shift note: Pt alert to self. Vitals stable, on RA. Denies pain at rest and appeared comfortable in bed & watching TV while awake, but with any movement pt grimaces and yells out. PRN Oxycodone admin x2 and Tylenol admin, ice pack applied as well. Dressing to L hip CDI, foam wedge in place. Pt up to toilet and commode to attempt to void as pierre removed yesterday afternoon, but pt very hard to redirect and won?t sit still and attempt to void, immediately wanting to stand up stating she doesn't have to go, with only dribbling into brief initially. Pt given 500ml bolus of LR per provider order in evening, bladder scanned for 223ml then >600 later in shift. Pt straight cathed this AM as pt stated she still didn?t feel she could go to the bathroom, 800ml output then pt had incontinence in brief as well, geovanna cares completed. PRN Trazodone admin in evening, pt initially fell asleep around 1am and is resting again at this time. Call light within reach and bed alarm on.??
--- NOTE | 2023-03-05 07:51 | PC.NURSE ---
Late Entry 03/04/23 07-15: Patient pleasant and cooperative. Up with two assist, walker and gait belt. Was able to ambulate between bed and recliner and eating meals in chair. Currie cath removed @ 1330, no output by 1500. Patient denied pain however will grimace, given PRN oxycodone prior to ambulating back to bed, patient appeared comfortable. Dressing dry and intact. Vitals stable and WNL.
[2023-03-05] MEDS: RIVAROXABAN 10 MG TABLET PO (09:27)
[2023-03-05] MEDS: SENNOSIDES 1 TAB TABLET 2 TAB PO ×2 (09:27→20:44)
[2023-03-05] MEDS: SERTRALINE 50 MG TABLET PO (09:28)
[2023-03-05] MEDS: EMOLLIENT BASE CREAM 1 APPLIC TOPICAL (09:28)
[2023-03-05] MEDS: DONEPEZIL 5 MG TABLET PO (09:28)
[2023-03-05] MEDS: SODIUM CHLORIDE 0.9 % (FLUSH) 10 ML SYRINGE 5 ML IVF ×2 (09:28→20:49)
--- NOTE | 2023-03-05 13:17 | PM.IMPN1 ---
Progress Note: A&P Assessment and plan (1) Closed subcapital fracture of left femur: Problem details: - surgery 03/03/[address] Thurman - routine post op cares - PT and OT Status: Acute (2) Alzheimer's type dementia with late onset without behavioral disturbance: Problem details: - stable, no agitation Status: Chronic Time Spent With Patient Total time spent: Disposition: Will need short term rehab. SW involved to help with d/c planning. Subjective Time Seen by Provider: 07:48 Date Seen: 03/05/23 Interval history: Esteban had low UO last for which she was given an IVF bolus, then had urinary retention. Straight cath this morning with good UO at that time. Esteban has no complaints. Exam Narrative: Exam Narrative: General: No acute distress. Sleeping, arouses to name, oriented only to self. Oropharynx: Clear. Mucous membranes moist. Cardiovascular: Regular rate and rhythm. No murmurs, gallops, or rubs. Respiratory: Clear to auscultation bilaterally. No wheezes or crackles. Extremities: Left posterior hip bandage is clean, dry, and intact. No pedal edema. Const: Vital Signs, click to edit/add: Vital Signs - 24 hr 03/04/23 16:00 03/04/23 16:00 03/04/23 19:25 Temperature 98.9 F 98.4 F Pulse Rate [Left A pical] 78 Pulse Rate [Left P ulse Oximeter] 92 Respiratory Rate 16 16 Blood Pressure [Le ft Arm] 115/68 Blood Pressure [Ri ght Arm] 114/99 H Pulse Oximetry 97 97 98 Oxygen Delivery Me thod Room Air Room Air Room Air Oxygen Flow Rate 03/04/23 23:00 03/04/23 23:00 03/04/23 23:00 Temperature 98.5 F Pulse Rate [Left A pical] Pulse Rate [Left P ulse Oximeter] 81 81 Respiratory Rate 16 16 16 Blood Pressure [Le ft Arm] 136/61 Blood Pressure [Ri ght Arm] Pulse Oximetry 99 99 Oxygen Delivery Me thod Room Air Room Air Oxygen Flow Rate 0 03/05/23 03:00 03/05/23 05:15 03/05/23 07:16 Temperature 98.7 F Pulse Rate [Left A pical] Pulse Rate [Left P ulse Oximeter] 71 96 Respiratory Rate 18 18 Blood Pressure [Le ft Arm] 138/67 Blood Pressure [Ri ght Arm] Pulse Oximetry 90 96 94 Oxygen Delivery Me thod Room Air Room Air Room Air Oxygen Flow Rate 0 03/05/23 08:41 03/05/23 11:43 Temperature 97.5 F L 98.4 F Pulse Rate [Left A pical] 81 Pulse Rate [Left P ulse Oximeter] 83 Respiratory Rate 18 18 Blood Pressure [Le ft Arm] 132/78 Blood Pressure [Ri ght Arm] 127/60 Pulse Oximetry 97 94 Oxygen Delivery Me thod Room Air Room Air Oxygen Flow Rate Documenting provider has reviewed patient's vital signs: yes
--- NOTE | 2023-03-05 16:49 | PM.ORPN ---
Subjective Subjective Date Seen: 03/05/23 Principal diagnosis: Status postop day 2 Left hip bipolar hemiarthroplasty Interval history: Poor historian due to baseline dementia. Patient reports doing okay. Per staff, no acute events over night. Per patient's daughter who was in the room, she becomes fidgety when her pain medication is wearing off. Pain managed with scheduled /PRN medications and ice. DVT prophylaxis rivaroxaban, bilateral knee high Leonel stockings, and SCDs. She states no complaints. Ortho Exam Narrative Exam Narrative: -Patient appears comfortable in recliner; no apparent acute distress. Dinner present. -Alert to self -Operative hip mildly swollen; soft tissues supple; no obvious erythema. Discomfort on palpation over the posterior hip/gluteus region -Surgical dressing clean, dry, intact; no obvious drainage, no erythematous streaking peripheral to the bandage -Bilateral calves soft and supple; no significant swelling, edema, tenderness, erythema, discoloration, warmth, or palpable cords -2+ DP/PT pulses, intact dermatomes and myotomes distally (5/5 strength). No numbness about the lateral femoral cutaneous nerve distribution. Const Vital Signs, click to edit/add: Vital Signs - 24 hr 03/04/23 19:25 03/04/23 23:00 03/04/23 23:00 Temperature 98.4 F 98.5 F Pulse Rate [Left Apical] Pulse Rate [Left Pulse Oximeter] 92 81 81 Respiratory Rate 16 16 16 Blood Pressure [Left Arm] 136/61 Blood Pressure [Right Arm] 114/99 H Pulse Oximetry 98 99 Oxygen Delivery Method Room Air Room Air Oxygen Flow Rate 03/04/23 23:00 03/05/23 03:00 03/05/23 05:15 Temperature 98.7 F Pulse Rate [Left Apical] Pulse Rate [Left Pulse Oximeter] 71 96 Respiratory Rate 16 18 18 Blood Pressure [Left Arm] 138/67 Blood Pressure [Right Arm] Pulse Oximetry 99 90 96 Oxygen Delivery Method Room Air Room Air Room Air Oxygen Flow Rate 0 0 03/05/23 07:16 03/05/23 08:41 03/05/23 11:43 Temperature 97.5 F L 98.4 F Pulse Rate [Left Apical] 81 Pulse Rate [Left Pulse Oximeter] 83 Respiratory Rate 18 18 Blood Pressure [Left Arm] 132/78 Blood Pressure [Right Arm] 127/60 Pulse Oximetry 94 97 94 Oxygen Delivery Method Room Air Room Air Room Air Oxygen Flow Rate 03/05/23 15:04 03/05/23 16:13 Temperature 98.2 F Pulse Rate [Left Apical] Pulse Rate [Left Pulse Oximeter] 83 Respiratory Rate 16 Blood Pressure [Left Arm] Blood Pressure [Right Arm] 129/69 Pulse Oximetry 94 99 Oxygen Delivery Method Room Air Room Air Oxygen Flow Rate Assessment and Plan Assessment and plan (1) Closed subcapital fracture of left femur: Problem details: - POD 2; bipolar hemiarthroplasty 03/03/[address] Thurman - routine post op cares - PT and OT Status: Acute (2) Alzheimer's type dementia with late onset without behavioral disturbance: Problem details: - stable, no agitation Status: Chronic Plan - Complete 23 hour perioperative antibiotics. - PT/OT consult for education and assistance. - Social work consult for discharge planning - Prescribed analgesics as needed - DVT prophylaxis: Rivaroxaban, bilateral knee high Leonel Hose stockings and SCDs - Anticipation is for discharge to [facility] likely early this week if the patient remains medically stable, pain is controlled, and they are safe with mobilization.
--- NOTE | 2023-03-05 18:18 | PC.NURSE ---
Shift Summary: Patient pleasant and cooperative. Up with two assist, walker and gait belt. Moves well but continues to need two assist due to dementia and difficulty following cues. Patient does better in bathroom when family is able to be by her side, does not void when staff are in room with her. Has been continent during shift, last void @ 1600. Tolerating regular diet well, feeds self independently. Dressing dry and intact. Vitals stable and WNL.
[2023-03-05] MEDS: TRAZODONE HCL 50 MG TABLET 25 MG PO (20:44)
[2023-03-06 03:00] VITALS: BP 121/83; PULSE 89; RESP 16; TEMP 36.4; O2SAT 97
--- NOTE | 2023-03-06 06:09 | PC.NURSE ---
[id number]: Patient had an uneventful night. Patient VSS and slept through the night. Patient unable to voice pain but facial expressions evident and patient states ow and ouch when moving. Patient voided 450 ml and PVR 228 ml. Patient remains confused d/t dementia dx and required constant cueing when being taking to bathroom and ambulating. Will continue to monitor.
[2023-03-06 07:00] VITALS: BP 134/68; PULSE 68; RESP 16; TEMP 36.5; O2SAT 95
--- NOTE | 2023-03-06 07:16 | CRLHL7_ITS ---
For Patients: As a result of the Cures Act, medical imaging exams and procedure reports are released immediately into your electronic medical record. You may view this report before your referring provider. If you have questions, please contact your health care provider. Indication: Left Hip bipolar hemiarthroplasty Technique: Left hip 2 views Comparison: None Findings: Left hip arthroplasty without evidence of fracture or loosening. Alignment is normal. No fractures or bone lesions. Osteopenia. Degenerative changes of the SI joints and lumbar spine partially visualized. Impression: Interval postoperative changes from left hip arthroplasty without complication. Dictated by Danny Martin MD @ 03/06/2023 9:21:11 AM (Electronically Signed)
[2023-03-06] MEDS: SERTRALINE 50 MG TABLET PO (08:17)
[2023-03-06] MEDS: SENNOSIDES 1 TAB TABLET 2 TAB PO ×2 (08:18→23:08)
[2023-03-06] MEDS: OXYCODONE 5 MG TABLET PO ×3 (08:18→17:29)
[2023-03-06] MEDS: DONEPEZIL 5 MG TABLET PO (08:18)
[2023-03-06] MEDS: RIVAROXABAN 10 MG TABLET PO (08:18)
[2023-03-06] MEDS: SODIUM CHLORIDE 0.9 % (FLUSH) 10 ML SYRINGE 5 ML IVF ×2 (08:19→23:09)
[2023-03-06] MEDS: EMOLLIENT BASE CREAM 1 APPLIC TOPICAL (08:24)
--- NOTE | 2023-03-06 08:55 | PM.DS1 ---
DS: Providers Provider Time Seen by Provider: 08:10 Date Seen: 03/06/23 Date of admission: 03/02/23 19:44 Primary care physician: Not a Local Provider Admitting Clinician: Carlton Yo MD Consults: 03/02/23 22:10 Consult to Physician [CONS] Routine Comment: Consulting Provider: Manuel Thurman Has provider been notified: Yes 03/02/23 22:12 Consult to Occupational Therapy [CONS] Routine Comment: Reason(s) for OT Consult:: Evaluate and Treat Any Restrictions?:: See Comment Comment: L subcapital fem fx, surg 03/03 Consult to Physical Therapy [CONS] Routine Comment: Reason(s) for PT Consult:: Evaluate and Treat Any Restrictions?:: See Comment Comment: L subcapital fem fx, surg 03/03 Consult to Rental Counter Clerk [CONS] Routine Comment: Reason for Consult:: Discharge Planning Needs 03/03/23 14:22 Consult to Occupational Therapy [CONS] Routine Comment: Reason(s) for OT Consult:: Evaluate and Treat Any Restrictions?:: See Comment Comment: evaluate and treat Consult to Physical Therapy [CONS] Routine Comment: Reason(s) for PT Consult:: Evaluate and Treat Any Restrictions?:: Wt Bearing as Tolerated Consult to Rental Counter Clerk [CONS] Routine Comment: Reason for Consult:: Discharge Planning Needs Attending Physician on discharge: Daisy Spears MD Date of Discharge: 03/06/23 DS: Diagnosis Discharge Diagnosis (1) Closed subcapital fracture of left femur: Status: Acute Problem details: - POD 2; bipolar hemiarthroplasty 03/03/[address] Thurman - routine post op cares - PT and OT (2) Fall: Status: Acute Problem details: - PT and OT (3) Unstable gait: Status: Chronic Problem details: - PT and OT (4) Falls frequently: Status: Chronic (5) Physical debility: Status: Chronic (6) Alzheimer's type dementia with late onset without behavioral disturbance: Status: Chronic Problem details: - stable, no agitation DS: Summary Hospital Course Hospital Course: Esteban is an 82-year-old woman with advanced late onset Alzheimer's dementia, severe cognitive impairment and physical debility. She has a longstanding history of frequent falls and more recently has had unintentional weight loss likely secondary to inadequate oral intake. She had been living in assisted living at [facility] she had a witnessed fall while walking and struck her leg on the table falling onto her left side hitting her left knee and hip. She was able to stand up on her own, but later in the day complained of left hip pain and ambulated with a limp. On imaging she had an acute mildly displaced left subcapital femoral fracture with impaction. On 03/03/2023 she underwent a left hip bipolar hemiarthroplasty. Postoperatively she had a brief episode of urinary retention that resolved after straight catheterization. She had also been given a fluid bolus for low urine output, but in hindsight this was likely urinary retention. She has had no urinary retention since then. Has been doing well postoperatively and is discharged in stable condition today. She is at her baseline mental status, calm and oriented only to self. Status at Discharge Overall status at discharge: patient is progressing back to baseline Time Spent with Patient Time attestation: Total time spent providing and/or coordinating discharge services: Time spent: Less than 30 minutes Exam Narrative: Exam Narrative: General: No acute distress. Sitting in chair petting two plush animals. She smiled today when I asked how she was doing. Oriented onlly to self. Oropharynx: Clear. Mucous membranes moist. Cardiovascular: Regular rate and rhythm. Respiratory: Clear to auscultation bilaterally. No wheezes or crackles. Const: Vital Signs, click to edit/add: Vital Signs - 24 hr 03/05/23 11:43 03/05/23 15:04 03/05/23 16:13 Temperature 98.4 F 98.2 F Pulse Rate [Left A pical] Pulse Rate [Left P ulse Oximeter] 83 83 Respiratory Rate 18 16 Blood Pressure [Le ft Arm] Blood Pressure [Ri ght Arm] 127/60 129/69 Pulse Oximetry 94 94 99 Oxygen Delivery Me thod Room Air Room Air Room Air Oxygen Flow Rate 03/05/23 19:00 03/05/23 23:00 03/05/23 23:00 Temperature 98.9 F Pulse Rate [Left A pical] 81 Pulse Rate [Left P ulse Oximeter] 97 97 Respiratory Rate 16 16 16 Blood Pressure [Le ft Arm] Blood Pressure [Ri ght Arm] 121/77 Pulse Oximetry 97 97 Oxygen Delivery Me thod Room Air Room Air Oxygen Flow Rate 0 0 03/05/23 23:00 03/06/23 03:00 03/06/23 07:00 Temperature 97.6 F 97.6 F Pulse Rate [Left A pical] Pulse Rate [Left P ulse Oximeter] 83 89 Respiratory Rate 16 16 Blood Pressure [Le ft Arm] 146/70 H 121/83 Blood Pressure [Ri ght Arm] Pulse Oximetry 98 97 95 Oxygen Delivery Me thod Room Air Room Air Room Air Oxygen Flow Rate 0 03/06/23 07:00 Temperature 97.7 F Pulse Rate [Left A pical] Pulse Rate [Left P ulse Oximeter] 68 Respiratory Rate 16 Blood Pressure [Le ft Arm] 134/68 Blood Pressure [Ri ght Arm] Pulse Oximetry 95 Oxygen Delivery Me thod Room Air Oxygen Flow Rate Documenting provider has reviewed patient's vital signs: yes DS: Data Data Completed and Pending Completed studies during hospitalization: 03/02/2023 9:04 p.m. EKG: Normal sinus rhythm 83 beats per minute, incomplete right bundle-branch block, nonspecific T-wave abnormality. Ordering Physician: Richie Looney M.D. Date of Service: 03/02/23 Procedure(s): CT pelvis [facility] Accession Number(s): [id number] cc: Provider,Not a Local ; Richie Looney M.D.~ For Patients: As a result of the Cures Act, medical imaging exams and procedure reports are released immediately into your electronic medical record. You may view this report before your referring provider. If you have questions, please contact your health care provider. INDICATION: Left hip pain. TECHNIQUE: CT pelvis without contrast. COMPARISON: Nine. FINDINGS: Bones: Acute mildly displaced left subcapital femoral fracture with impaction. Joints: Unremarkable. Soft tissues: Colonic diverticulosis. Mild colonic stool burden. Otherwise, unremarkable. IMPRESSION: Acute mildly displaced left subcapital femoral fracture with impaction. Please note that all CT scans at this facility use dose modulation, iterative reconstruction, and/or weight-based dosing when appropriate to reduce radiation dose to as low as reasonably achievable. Dictated by Richie De Jesus MD @ 03/02/2023 6:32:48 PM (Electronically Signed) Discharge Plan Discharge Disposition: [facility] Date of Admission: 03/02/23 19:44 Attending Provider on Discharge: Daisy Spears Consulting Providers: Manuel Thurman Primary Care Provider: Provider,Not a Local Discharge Medications: New sennosides-docusate sodium [Senna-S] 8.6-50 mg tablet 1 - 4 tab-cap PO BID PRN (Reason: constipation) Qty: 60 0RF Rx Instructions: Hold medication if experiencing loose stools. oxycodone 5 mg tablet 2.5 - 5 mg PO Q4-6H MDD 6 PRN (Reason: pain) Qty: 30 0RF Rx Instructions: Take as needed for postop pain: 2.5mg mild pain, 5mg moderate-severe pain; wean as tolerated. rivaroxaban 10 mg tablet 10 mg PO DAILY Qty: 28 0RF Continued acetaminophen 500 mg capsule 500 mg PO BID Patient Comments: 0800,1700 sertraline 50 mg tablet 50 mg PO DAILY donepezil 5 mg tablet 5 mg PO HS Patient Comments: AT 8PM emollient [Vanicream] Cream 1 applic topical DAILY Rx Instructions: daily to lower extremities for dry skin trazodone 50 mg tablet 25 mg PO BID PRN Discharge Orders: Discharge Order (Routine); Ordered 03/06/23 Ordered By: Nabil Lujan Activity Level: Activity as Tolerated, Up with assist, Weight Bearing as Tolerated, Don't flex hip more than 90 degrees and Other Discharge Diet: Regular Follow Up Appointments: Provider,Not a Local [Primary Care Provider] - Admit to: SNF Discharge Potential: Good Length of Stay: <30 days Can use facility standing orders?: Yes Code Status: DNR/DNI TEDs: Bilateral Knee Rehab Potential: Fair Therapy: Physical Therapy and Occupational Therapy Therapy Orders: Evaluate and Treat Urinary Catheter: No Orders are good >30 days: No Signature: Daisy Spears MD
[2023-03-06 11:00] VITALS: BP 130/65; PULSE 68; RESP 18; TEMP 36.6; O2SAT 96
[2023-03-06] MEDS: ACETAMINOPHEN 325 MG TABLET 650 MG PO (14:12)
[2023-03-06 15:00] VITALS: BP 134/82; PULSE 96; RESP 16; TEMP 36.9; O2SAT 96
--- NOTE | 2023-03-06 16:02 | PC.SOCIAL ---
Addendum entered by RAND Cochran 03/06/23 16:08: Daughter has been updated and is upset it is taking so long. She states [facility] knew about her on Monday already. Their admissions person states they did not get information from us. Which is not true all information for a SNF referral has been sent. Original Note: [facility] said they only got the facesheet from the fax sent on Monday. Sent pt.'s referral which said it went through on our end. They e-mailed back saying they did not get the referral so a secure email was sent. They requested nursing notes which was sent. Stated they still needed more nursing information advised to call for a nurse report.
--- NOTE | 2023-03-06 18:55 | PC.NURSE ---
Patient alert and oriented to person only. Lung sounds clear and bowel sounds active x 4 quadrants. CMS to left lower extremity intact. Patient reported pain to left hip with ambulation, last medicated with prn oxy at 1729 with effective results. Patient ambulating through the hallway with walker and SBA assist of 1 with gait belt. Increased restlessness noted after 1630, patient is fidgeting and attempting to get up unassisted, restlessness improved with ambulating the hallway.
[2023-03-06 19:00] VITALS: BP 108/38; PULSE 89; RESP 16; TEMP 36.6; O2SAT 96
[2023-03-06 23:00] VITALS: BP 148/68; PULSE 84; PULSE 96; RESP 16; TEMP 36.6; O2SAT 96
[2023-03-07 03:00] VITALS: BP 148/68; PULSE 84; PULSE 96; RESP 16; TEMP 36.4; O2SAT 96
--- NOTE | 2023-03-07 07:03 | PC.NURSE ---
Shift note: Pt has been sleeping very well tonight. Vitally stable. Brief checked this morning which was dry. Bladder scan was 479. Pt helped to BR to help urinate before any attempt to straight cath. Handed over to the day shift nurse.
[2023-03-07 07:30] VITALS: BP 107/94; PULSE 87; PULSE 96; RESP 16; TEMP 36.6; O2SAT 96
[2023-03-07] MEDS: RIVAROXABAN 10 MG TABLET PO (08:56)
[2023-03-07] MEDS: SERTRALINE 50 MG TABLET PO (08:56)
[2023-03-07] MEDS: SENNOSIDES 1 TAB TABLET 2 TAB PO (08:56)
[2023-03-07] MEDS: DONEPEZIL 5 MG TABLET PO (08:56)
[2023-03-07] MEDS: SODIUM CHLORIDE 0.9 % (FLUSH) 10 ML SYRINGE 5 ML IVF (08:57)
[2023-03-07] MEDS: EMOLLIENT BASE CREAM 1 APPLIC TOPICAL (08:57)
--- NOTE | 2023-03-07 10:33 | PC.SOCIAL ---
Discharge planning- Phone call to Tresa Monson in admission at [facility] ([phone]). [facility] will accept pt for admission to [facility] for today. Pt can come over anytime. Phone call to charge nurse. Pt is going non-emergency ambulance within the next hour to [facility]. Follow up phone call to Tresa in admissions at [facility] and provided her with the information. Phone call to pt's dtr to provide update. Dtr will bring pts shoes back and come back to the hospital now. Completed Preadmission screening. Confirmation# [id number]. Faxed PAS to [facility]. Social work will follow up as necessary.
--- NOTE | 2023-03-07 11:21 | PC.NURSE ---
VSS AND AFEBRILE. TOLERATING REGULAR DIET. UP WITH A1, WALKER AND GAIT BELT AND AMBULATED IN [facility]. PATIENT HAD LARGE BM AFTER BREAKFAST. REPORT GIVEN TO COREEN STALLWORTH AT [facility]. [facility] DC'D AND PATIENT TRANSFERRED VIA [facility] NON-EMERGENT TRANSPORT.
--- NOTE | 2023-03-07 12:50 | PM.IMPN1 ---
Progress Note: A&P Assessment and plan (1) Closed subcapital fracture of left femur: Problem details: - POD 2; bipolar hemiarthroplasty 03/03/[address] Thurman - routine post op cares - PT and OT Status: Acute (2) Alzheimer's type dementia with late onset without behavioral disturbance: Problem details: - stable, no agitation Status: Chronic Time Spent With Patient Total time spent: Disposition: [facility] today Subjective Time Seen by Provider: 10:03 Date Seen: 03/07/23 Interval history: Esteban was supposed to leave for [facility] yesterday, but the discharge did not happen due to logistical issues. Esteban continues to do well, ambulating with a walker. She remains pleasant with dementia. Exam Narrative: Exam Narrative: General: No acute distress. Sitting in chair with two plush animals. Smiling at staff in the room. Const: Vital Signs, click to edit/add: Vital Signs - 24 hr 03/06/23 15:00 03/06/23 15:00 03/06/23 19:00 Temperature 98.4 F 97.9 F Pulse Rate [Left A pical] 89 Pulse Rate [Left P ulse Oximeter] 96 Respiratory Rate 16 16 Blood Pressure [Le ft Arm] 134/82 Blood Pressure [Ri ght Arm] 108/38 L Pulse Oximetry 96 96 96 Oxygen Delivery Me thod Room Air Room Air Room Air Oxygen Flow Rate 0 03/06/23 23:00 03/06/23 23:00 03/06/23 23:00 Temperature 97.9 F Pulse Rate [Left A pical] 84 84 Pulse Rate [Left P ulse Oximeter] 96 Respiratory Rate 16 16 16 Blood Pressure [Le ft Arm] Blood Pressure [Ri ght Arm] 148/68 H Pulse Oximetry 96 96 Oxygen Delivery Me thod Room Air Room Air Oxygen Flow Rate 0 0 03/07/23 03:00 03/07/23 07:30 03/07/23 07:30 Temperature 97.6 F Pulse Rate [Left A pical] 84 87 Pulse Rate [Left P ulse Oximeter] 96 Respiratory Rate 16 16 16 Blood Pressure [Le ft Arm] Blood Pressure [Ri ght Arm] 148/68 H Pulse Oximetry 96 96 Oxygen Delivery Me thod Room Air Room Air Oxygen Flow Rate 0 0 03/07/23 07:30 Temperature 98 F Pulse Rate [Left A pical] 87 Pulse Rate [Left P ulse Oximeter] 96 Respiratory Rate 16 Blood Pressure [Le ft Arm] Blood Pressure [Ri ght Arm] 107/94 H Pulse Oximetry 96 Oxygen Delivery Me thod Room Air Oxygen Flow Rate 0 Documenting provider has reviewed patient's vital signs: yes
== END 2023-03-07 10:15 | DRG 522 ==
LOC: ED 19:26 → MEDSURG 19:45
PROVIDERS: Family Medicine; Orthopaedic Surgery Sports Medicine; Admitting Provider Internal Medicine; Emergency Provider Student in an Organized Health Care Education/Training Program; Visit Provider Internal Medicine
PROC: 0SRS0J9 Replacement of Left Hip Joint, Femoral Surface with Synthetic Substitute, Cemented, Open Approach (ICD-10-PCS; principal; 2023-03-03 12:00)
DX: S72.012A Unspecified intracapsular fracture of left femur, initial encounter for closed fracture (principal); W01.190A Fall on same level from slipping, tripping and stumbling with subsequent striking against furniture, initial encounter; Y92.129 Unspecified place in nursing home as the place of occurrence of the external cause; G30.1 Alzheimer's disease with late onset; F02.80 Dementia in other diseases classified elsewhere, unspecified severity, without behavioral disturbance, psychotic disturbance, mood disturbance, and anxiety; R33.9 Retention of urine, unspecified; R26.81 Unsteadiness on feet; R53.81 Other malaise; R63.4 Abnormal weight loss; Z91.81 History of falling; I45.10 Unspecified right bundle-branch block
CPT/HCPCS: 01210; 36415; 51702; 51798; 72192; 73502; 80048; 81003; 82803; 83605; 83735; 84100; 84443; 84484; 85025; 85027; 85610; 86140; 87086; 87426; 87635; 97110; 97116; 97162; 97165; 97530; 97535; 99100; 99140; 99283; 99284; A9270; C1776; J0690; J1170; J2405; J2704; J3490; J7120

== ENCOUNTER 2023-03-07 10:06 | Outpatient (CLI) | payer MEDICARE, BC, SELFPAY | END 2023-03-07 10:07 | disposition home or self-care (01) | LOC: AMB 03-08 07:20 | PROVIDERS: Visit Provider Family Medicine | DX: F03.90 Unspecified dementia, unspecified severity, without behavioral disturbance, psychotic disturbance, mood disturbance, and anxiety (principal); R53.1 Weakness | CPT/HCPCS: A0425; A0428 ==